=== PATIENT | female | born 1980 | race American Indian/Alaskan Native ===

== ENCOUNTER 2018-04-08 13:18 | Emergency (ER) | payer BC ==
[2018-04-08] MEDS ORDERED: TORADOL IM ONE (16:00)
[2018-04-08] MEDS ORDERED: ZOFRAN ODT PO ONE (16:00)
--- NOTE | 2018-04-08 16:03 | Emergency Department Report ---
ED Headache HPI - General Chief Complaint: Headache Stated Complaint: LEFT SIDE PAIN Time Seen by Provider: 04/08/18 13:19 - History of Present Illness Initial Comments: This is a 38-year-old -[place] female who presents with headache and nausea for 1 week. Past medical history of migraines. Patient reports migraine headache that is primarily on the left side around left eye. Patient reports pain is sharp in intensity and 10 out of 10 on pain scale. Patient states she is having some floaters with light sensitivity for the past 2 days. Patient states she has been taking ibuprofen for symptom relief which usually resolves migraines but this time has not improved her symptoms. Patient states headache started one week ago and it intensified over the past 2 days. Patient reports last menstrual period was 04/04/2018. She denies chest pain, fever, recent upper respiratory infection, congestion, recent injury, and sinus pressure. Timing/Duration: 1 week, waxing and waning Quality: severe, constant, sharp, throbbing Head Injury Location: frontal (frontal left side) Recent Head Trauma: no recent headache/trauma Modifying Factors: improves with: exposure to light (exposures to light worsen symptoms), medication Associated Symptoms: nausea/vomiting, vision changes (sensitive to light). denies: confusion, fatigue, facial pain, fever/chills, flushing, loss of consciousness, nasal congestion, nasal drainage, numbness in legs/feet, rash, seizures, sinus infection, stiff neck, weakness Allergies/Adverse Reactions: Allergies Sulfa (Sulfonamide Antibiotics) Allergy (Verified 04/08/18 13:30) Rash Home Medications: Ambulatory Orders Ondansetron [Zofran Odt] 4 mg PO TID PRN #10 tab.rapdis 04/08/18 SUMAtriptan SUCCINATE [Imitrex] 25 mg PO DAILY PRN #8 tablet 04/08/18 ED Review of Systems ROS: Stated complaint: LEFT SIDE PAIN Other details as noted in HPI Constitutional: denies: chills, fever Eyes: vision change (floaters with light sensitivity). denies: eye pain, eye discharge ENT: denies: ear pain, throat pain, dental pain, hearing loss, epistaxis, congestion Respiratory: denies: cough, shortness of breath, wheezing Cardiovascular: denies: chest pain, palpitations Gastrointestinal: nausea. denies: abdominal pain, vomiting, diarrhea, constipation Neurological: headache. denies: weakness, paresthesias Psychiatric: denies: anxiety, depression ED Past Medical Hx - Past Medical History Hx Headaches / Migraines: Yes - Surgical History Past Surgical History?: Yes Additional Surgical History: - Social History Smoking Status: Never Smoker Substance Use Type: None - Medications Home Medications: Home Medications Medication Instructions Recorded Confirmed Last Taken Type Ondansetron [Zofran Odt] 4 mg PO TID PRN #10 tab.rapdis 04/08/18 Unknown Rx SUMAtriptan SUCCINATE [Imitrex] 25 mg PO DAILY PRN #8 tablet 04/08/18 Unknown Rx ED Physical Exam - General Limitations: No Limitations General appearance: alert, in no apparent distress - Eye Eye exam: Present: PERRL, EOMI. Absent: scleral icterus, conjunctival injection , nystagmus, periorbital swelling, periorbital tenderness Pupils: Present: normal accommodation - ENT ENT exam: Present: mucous membranes moist - Neck Neck exam: Present: normal inspection - Respiratory Respiratory exam: Present: normal lung sounds bilaterally. Absent: respiratory distress - Cardiovascular Cardiovascular Exam: Present: regular rate, normal rhythm. Absent: systolic murmur, diastolic murmur, rubs, gallop - GI/Abdominal GI/Abdominal exam: Present: soft, normal bowel sounds. Absent: organomegaly, mass - Neurological Exam Neurological exam: Present: alert, oriented X3, normal gait - Psychiatric Psychiatric exam: Present: normal affect, normal mood - Skin Skin exam: Present: warm, dry, intact, normal color. Absent: rash ED Course Vital Signs 04/08/18 13:19 Temperature 98.9 F Pulse Rate 69 Respiratory 18 Rate Blood Pressure 125/80 O2 Sat by Pulse 100 Oximetry ED Medical Decision Making - Radiology Data Radiology results: report reviewed EXAM: CT HEAD/BRAIN WO CON HISTORY: migraine TECHNIQUE: Standard unenhanced CT of the head at 5.0 millimeter axial increments. PRIORS: None. FINDINGS: The ventricular system is normal in size and configuration. There is no evidence for parenchymal volume loss. There is no evidence for mass lesion, mass effect, midline shift, acute intracranial hemorrhage, or acute ischemia/ infarction. No evidence for acute skull fracture is seen. No abnormality in the overlying scalp soft tissues is seen. Visualized paranasal sinuses are clear. IMPRESSION: Negative CT of the head. No acute intracranial process noted. - Medical Decision Making This is a 38 y.o. female that presents with migraine headache for 1 week. History of migraines. Patient is stable and was examined by me. CT of head obtained and dictated by radiologist. Negative CT of the head. No acute intracranial process noted. Signs of distress noted. Given toradol and zofran in ER once. Patient states she is feeling better. Start imitrax 25 mg po daily #8 and zofran ODT 4 mg po tid prn. No further questions noted by the patient. Discharged home in stable condition. Follow up with PCP in 24-72 hours. Critical care attestation.: If time is entered above; I have spent that time in minutes in the direct care of this critically ill patient, excluding procedure time. ED Disposition Clinical Impression: Migraine Qualifiers: Migraine type: without aura Status migrainosus presence: with status migrainosus Intractability: not intractable Qualified Code(s): G43.001 - Migraine without aura, not intractable, with status migrainosus Headache Qualifiers: Headache type: primary stabbing headache Qualified Code(s): G44.85 - Primary stabbing headache Disposition: TO HOME OR SELFCARE Is pt being admited?: Yes Does the pt Need Aspirin: No Condition: Stable Instructions: Migraine Headache (ED) Additional Instructions: Take medication at start of headache. Moderate caffeine intake. Eat at scheduled times or 3 meals a day with snacks. Follow up with primary care provider in 24-72 hours. Prescriptions: Ondansetron [Zofran Odt] 4 mg PO TID PRN #10 tab.rapdis PRN Reason: Nausea And Vomiting SUMAtriptan SUCCINATE [Imitrex] 25 mg PO DAILY PRN #8 tablet PRN Reason: Migraine Headache Referrals: BEVERLY PATEL MD [Staff Physician] - 3-5 Days [facility] [Provider Group] - 3-5 Days [facility] [Provider Group] - 3-5 Days Forms: Work/School Release Form(ED) Time of Disposition: 17:18 Print Language: NEPALI
--- NOTE | 2018-04-08 16:46 | Cat Scan Report ---
FINAL REPORT EXAM: CT HEAD/BRAIN WO CON HISTORY: migraine TECHNIQUE: Standard unenhanced CT of the head at 5.0 millimeter axial increments. PRIORS: None. FINDINGS: The ventricular system is normal in size and configuration. There is no evidence for parenchymal volume loss. There is no evidence for mass lesion, mass effect, midline shift, acute intracranial hemorrhage, or acute ischemia/ infarction. No evidence for acute skull fracture is seen. No abnormality in the overlying scalp soft tissues is seen. Visualized paranasal sinuses are clear. IMPRESSION: Negative CT of the head. No acute intracranial process noted.
[2018-04-08 17:53] VITALS: BP 110/77
== END 2018-04-08 17:55 | disposition home or self-care (01) ==
LOC: ED 13:18
DX: G43.001 Migraine without aura, not intractable, with status migrainosus (principal); Z88.2 Allergy status to sulfonamides
CPT/HCPCS: 70450; 96372; 99283; J1885; Q0162